=== PATIENT | female | born 1970 | race Caucasian/White ===

== ENCOUNTER 2018-09-14 00:51 | Emergency (ER) | payer OTHER ==
[~2018-09-14] VITALS: Ht 160 cm; Wt 84.0 kg
[2018-09-14 01:03] VITALS: Ht 160 cm; Wt 84.0 kg
[2018-09-14] MEDS ORDERED: KETOROLAC 30 MG INJ IM STA (07:19)
[2018-09-14] MEDS ORDERED: DEXAMETHASONE 10 MG/ML 1 ML INJ IM ONE (07:30)
[2018-09-14] MEDS ORDERED: METHOCARBAMOL 750 MG TAB PO ONE (07:30)
[2018-09-14] MEDS ORDERED: METH750T93 PO (08:23)
[2018-09-14] MEDS ORDERED: IBUP-1542 PO (08:23)
[2018-09-14] MEDS ORDERED: D-ME118S24 PO (08:23)
--- NOTE | 2018-09-14 08:27 | ERD ---
ER Documentation Chief Complaint Chief Complaint body aches/headache/fever/cough x 1 day HPI 47-year-old female presents for fever, cough, body aches, low back pain for 1 week. She states that the symptoms have been worsening for the past day. She states that the fever was 101.2 at home. She was taking TheraFlu and Tylenol with some relief however she states that the fever returns. She also states that his chronic low back pain which is worsening for the past few days. She states that she currently has a 9 out of 10 back pain. Denies any recent procedures on the back. The quality of the pain is similar to the one she had in the past. She has any dysuria. She does have a past medical history of hypertension. ROS All systems reviewed and are negative except as per history of present illness. Medications Home Meds Active Scripts D-Methorphan Hb/P-Epd HCl/Bpm (Afntvwufeb-Diyjjjygjyh-Ts Syr) 118 Ml Syrup, 5 ML PO Q4H PRN for COUGH for 7 Days, #1 BOTTLE Prov:SUZANNA ROSA 09/14/18 Methocarbamol* (Robaxin*) 750 Mg Tablet, 750 MG PO TID PRN for MUSCLE SPASMS, #30 TAB Prov:MOESUZANNA COMER 09/14/18 Ibuprofen* (Motrin*) 600 Mg Tab, 600 MG PO Q6H PRN for PAIN AND OR ELEVATED TEMP, #30 TAB Prov:SUZANNA ROSA 09/14/18 Allergies Allergies: Coded Allergies: acetaminophen (Verified Allergy, Unknown, 09/14/18) oxycodone (Verified Allergy, Unknown, 09/14/18) PMhx/Soc History of Surgery: Yes (Tonsillectomy) Anesthesia Reaction: No Hx Neurological Disorder: No Hx Respiratory Disorders: No Hx Cardiac Disorders: No Hx Psychiatric Problems: No Hx Miscellaneous Medical Probl: Yes (HTN) Hx Alcohol Use: No Hx Substance Use: No Hx Tobacco Use: No Smoking Status: Never smoker Physical Exam Vitals Vital Signs Date Temp Pulse Resp B/P (MAP) Pulse Ox O2 O2 Flow FiO2 Time Delivery Rate 09/14/18 100.0 105 18 147/76 97 01:03 (99) Physical Exam Const: No acute distress Head: Atraumatic Eyes: Normal Conjunctiva ENT: Normal External Ears, bilateral tympanic membrane intact without erythema or bulging noted, nose and Mouth examination normal, no tonsillar swelling or exudate noted Neck: Full range of motion. No meningismus. Resp: Clear to auscultation bilaterally, no wheezing, rales, rhonchi Cardio: Regular rate and rhythm, no murmurs, bilateral radial and dorsalis pedis pulses intact Skin: No petechiae or rashes Ext: No cyanosis, or edema, bilateral lower extremity 5 out of 5 muscle strength Neur: Awake and alert, bilateral lower extremity sensation intact Psych: Normal Mood and Affect Back: There is low back left-sided paravertebral muscle tenderness palpation Results 24 hrs Laboratory Tests Test 09/14/18 07:32 POC Beta HCG, Qualitative NEGATIVE Current Medications Medications Dose Sig/Sadaf Start Time Status Last (Trade) Ordered Route PRN Stop Time Admin Dose Reason Admin Ketorolac 30 mg ONCE STAT 09/14/18 DC 09/14/18 Tromethamine IM 07:19 07:40 (Toradol) 09/14/18 07:21 10 mg ONCE ONCE 09/14/18 DC 09/14/18 Dexamethasone IM 07:30 07:35 (Decadron) 09/14/18 07:31 750 mg ONCE ONCE 09/14/18 DC 09/14/18 Methocarbamol PO 07:30 07:32 (Robaxin) 09/14/18 07:31 Procedures/MDM Medical Decision Making: Differential diagnosis includes but not limited to upper respiratory infection, pneumonia, sepsis, meningitis. Patient appeared well on physical examination, nontoxic appearing. Lungs were clear to auscultation bilaterally. There is low suspicion for pneumonia, sepsis, meningitis. Patient likely has an upper respiratory infection, likely viral. Therefore antibiotics not indicated. Discussed symptomatic treatment with patient's parent who agrees with plan. Patient given prescription for supportive medications. Patient also complains of low back pain which appears to be chronic. She is given Toradol, Decadron, Robaxin in the ER with relief of symptoms. Patient given prescription for Robaxin and Motrin for her back pain. Patient advised to follow up with PCP in 1-2 days. Patient advised to return to ED for new or worsening symptoms. Patient stable on discharge from the ED. Disclaimer: Inadvertent spelling and grammatical errors are likely due to EHR/dictation software use and do not reflect on the overall quality of patient care. Also, please note that the electronic time recorded on this note does not necessarily reflect the actual time of the patient encounter. Departure Diagnosis: Primary Impression: Upper respiratory infection URI type: unspecified URI Qualified Codes: J06.9 - Acute upper respiratory infection, unspecified Additional Impression: Low back pain Chronicity: chronic Back pain laterality: left Sciatica presence: without sciatica Qualified Codes: M54.5 - Low back pain; G89.29 - Other chronic pain Condition: Fair Patient Instructions: Preventing Common Respiratory Infections, Back Care Tips Referrals: [facility] YOU HAVE RECEIVED A MEDICAL SCREENING EXAM AND THE RESULTS INDICATE THAT YOU DO NOT HAVE A CONDITION THAT REQUIRES URGENT TREATMENT IN THE EMERGENCY DEPARTMENT. FURTHER EVALUATION AND TREATMENT OF YOUR CONDITION CAN WAIT UNTIL YOU ARE SEEN IN YOUR DOCTORS OFFICE WITHIN THE NEXT 1-2 DAYS. IT IS YOUR RESPONSIBILITY TO MAKE AN APPOINTMENT FOR FOLOW-UP CARE. IF YOU HAVE A PRIMARY DOCTOR --you should call your primary doctor and schedule an appointment IF YOU DO NOT HAVE A PRIMARY DOCTOR YOU CAN CALL OUR PHYSICIAN REFERRAL HOTLINE AT IF YOU CAN NOT AFFORD TO SEE A PHYSICIAN YOU CAN CHOSE FROM THE FOLLOWING [facility] [id number] [facility]. [facility] [address] [facility] [facility] [address] [facility] [facility] [address] [facility] [facility] [address] [facility] [facility]. [address] Additional Instructions: Call your primary care doctor TOMORROW for an appointment during the next 1-2 days.See the doctor sooner or return here if your condition worsens before your appointment time. SUZANNA ROSA DO Sep 14, 2018 08:27
[2018-09-14 09:01] VITALS: BP 139/76; PULSE 87; RESP 18
== END 2018-09-14 09:03 | disposition home or self-care (01) ==
LOC: FTE 00:51
DX: J06.9 Acute upper respiratory infection, unspecified (principal); M54.5 Low back pain; I10 Essential (primary) hypertension
CPT/HCPCS: 81025; 96372; 99284; J1100; J1885